=== PATIENT | female | born 1990 | race Caucasian/White ===

== ENCOUNTER → 2017-09-04 | Outpatient (CLI) | payer BC | LOC: HPND 13:25 | PROVIDERS: ATTEND Obstetrics & Gynecology | DX: O36.80X0 Pregnancy with inconclusive fetal viability, not applicable or unspecified (principal) | CPT/HCPCS: 76805 ==

== ENCOUNTER → 2017-10-02 | Outpatient (CLI) | payer BC | LOC: HPND 13:00 | PROVIDERS: ATTEND Obstetrics & Gynecology | DX: O35.8XX0 Maternal care for other (suspected) fetal abnormality and damage, not applicable or unspecified (principal); O26.843 Uterine size-date discrepancy, third trimester | CPT/HCPCS: 76816 ==